=== PATIENT | male | born 2000 | race Caucasian/White ===

== ENCOUNTER 2023-08-03 19:38 | Emergency (ER) | payer MEDICAID ==
[~2023-08-03] VITALS: Ht 167.6 cm; Wt 80.2 kg
[2023-08-03 19:58] VITALS: O2SAT 97
[2023-08-03 20:12] LABS: CLARITY URINE TURBID (CLEAR); COLOR URINE DARK YELLOW (YELLOW); GLUCOSE URINE NEGATIVE (NEGATIVE); KETONES URINE TRACE (NEGATIVE); LEUKOCYTE ESTERASE URINE NEGATIVE (NEGATIVE); NITRITE URINE NEGATIVE (NEGATIVE); OCCULT BLOOD URINE TRACE (NEGATIVE); PH URINE 5.5 (4.5-8.0); PROTEIN URINE TRACE (NEGATIVE); SPECIFIC GRAVITY URINE 1.042 (1.005-1.030)
[2023-08-03 20:53] LABS: BACTERIA URINE 2+; CALCIUM OXALATE CRYSTALS URINE 1+ /lpf; SQUAMOUS EPITHELIAL CELL URINE 1+ /lpf (RARE/1+)
[2023-08-03 21:17] LABS: BASOPHILS % 0.7 % (0.0-2.0); EOSINOPHILS % 2.3 % (0.0-5.0); HEMATOCRIT. 48.8 % (42.0-52.0); HEMOGLOBIN. 16.1 g/dL (14.0-18.0); LYMPHOCYTES % 28.2 % (20.0-50.0); MEAN CORPUSCULAR HEMOGLOBIN 30.8 pg (28.0-32.0); MEAN CORPUSCULAR VOLUME 93.2 fL (80.0-94.0); MEAN PLATELET VOLUME 9.5 fl (7.4-10.4); MONOCYTES % 6.4 % (2.0-8.0); NEUTROPHILS % 62.4 % (40.0-76.0); PLATELET 295 x1000/uL (130-400); RED BLOOD CELL COUNT 5.23 mill/uL (4.7-6.1); RED CELL DISTRIBUTION WIDTH 13.5 % (11.6-14.6); WHITE BLOOD COUNT 9.3 x1000/uL (4.5-11.0)
[2023-08-03 21:27] LABS: ALANINE AMINOTRANSFERASE 177 IU/L (10-49); ASPARTATE AMINOTRANSFERASE 95 IU/L (<34); BILIRUBIN TOTAL 0.6 mg/dL (0.1-1.0); CALCIUM 9.6 mg/dL (8.7-10.4); CARBON DIOXIDE 29 mEq/L (21-32); CHLORIDE 105 mEq/L (98-107); CREATININE 0.9 mg/dL (0.6-1.3); GLUCOSE 118 mg/dL (70-105); PROTEIN TOTAL 7.7 g/dL (6.0-8.3); SODIUM 139 mEq/L (136-145); UREA NITROGEN BLOOD 14 mg/dL (9-23)
[2023-08-03] MEDS ORDERED: DOXYCYCLINE HYCLATE 100MG CAPSULE PO NR (22:30)
[2023-08-03] MEDS ORDERED: CEFTRIAXONE 1GM PREMIX 50 ML IV NR (22:30)
[2023-08-03] MEDS ORDERED: LIDOCAINE HCL 1% 20ML VIAL (Pyxis) INJ INFIL NR (22:30)
[2023-08-04] MEDS ORDERED: CIPR-263 MT (00:42)
[2023-08-04] MEDS ORDERED: METR-167 MT (00:42)
[2023-08-04] MEDS ORDERED: CEFTRIAXONE SODIUM 1 G/VIAL IM ONE (00:45)
[2023-08-04] MEDS: KETOROLAC 15MG/ML VIAL IM NR ×2 (01:02→01:10)
[2023-08-04 01:11] VITALS: BP 139/75; PULSE 85; RESP 18; TEMP 98.2
== END 2023-08-04 01:12 | disposition home or self-care (01) ==
LOC: ER 19:38
DX: K57.92 Diverticulitis of intestine, part unspecified, without perforation or abscess without bleeding (principal)
CPT/HCPCS: 80053; 81003; 83690; 85025; 36415; 74176; 99285; 96372; J0696; J1885; J3490; Z7610

== ENCOUNTER 2023-12-21 18:14 | Emergency (ER) | payer MEDICAID ==
[~2023-12-21] VITALS: Ht 165.1 cm; Wt 74.0 kg
[~2023-12-21 18:14] MED LIST: CIPR-263 MT; METR-167 MT
[2023-12-21 18:18] VITALS: BP 142/69; RESP 16; TEMP 98.8; O2SAT 100
[2023-12-21 18:21] VITALS: PULSE 95
[2023-12-21 18:48] LABS: CLARITY URINE CLEAR (CLEAR); COLOR URINE YELLOW (YELLOW); GLUCOSE URINE NEGATIVE (NEGATIVE); KETONES URINE NEGATIVE (NEGATIVE); LEUKOCYTE ESTERASE URINE NEGATIVE (NEGATIVE); NITRITE URINE NEGATIVE (NEGATIVE); OCCULT BLOOD URINE NEGATIVE (NEGATIVE); PROTEIN URINE NEGATIVE (NEGATIVE); SPECIFIC GRAVITY URINE 1.022 (1.005-1.030); UROBILINOGEN URINE 0.2 E.U./dL (0.2-1.0)
[2023-12-21] MEDS ORDERED: NAPR-1176 MT (20:31)
[2023-12-24 04:10] LABS: CHLAMYDIA TRACHOMATIS NAA Negative (Negative); NEISSERIA GONORRHOEAE NAA Negative (Negative)
== END 2023-12-21 21:54 | disposition home or self-care (01) ==
LOC: ER 18:14
DX: N50.811 Right testicular pain (principal)
CPT/HCPCS: 76870; 81003; 87491; 87591; 93976; 99284